=== PATIENT | male | born 1995 | race Caucasian/White ===

== ENCOUNTER → 2024-02-26 13:35 | Outpatient (REF) | payer OTHER, SELFPAY | LOC: RAD 13:35 | PROVIDERS: ATTENDING PHYSICIAN Emergency Medicine | DX: S30.0XXD Contusion of lower back and pelvis, subsequent encounter (principal) | CPT/HCPCS: 72110 ==

== ENCOUNTER 2024-04-16 16:32 | Emergency (ER) | payer OTHER, SELFPAY ==
[2024-04-16 16:35] VITALS: BP 154/85
--- NOTE | 2024-04-16 17:27 | ED.GENMED ---
History of Present Illness
General
Chief Complaint: Abdominal Pain
Time Seen by Provider: 04/16/24 17:26
History of Present Illness
History of Present Illness:
HPI: The patient presents with abdominal pain. He locates the pain as left greater than right. Of note, 2 months ago the patient fell out of a tree from approximately 10 feet. He started taking an NSAID at that time. About 3 weeks ago he
developed 'a GI bug' but since that time is been having ongoing/worsening abdominal pain. He also showed me a picture that he had on his phone of saliva with some blood mixed in with it that he spit up earlier
EXAM:
GENERAL: Well appearing in no distress
HEENT: Moist oral mucosa
CARDIOVASCULAR: No murmurs, normal heart rate, regular rhythm, No chest wall tenderness
PULMONARY: No respiratory distress, breath sounds are clear and equal
ABDOMEN: Soft with no peritoneal signs, mild to moderate left greater than right diffuse tenderness
NEUROLOGIC: Excellent strength all extremities, no coordination deficits
PSYCHIATRIC: Appropriate mental status, normal insight and judgement
EXTREMITIES: Nontender, no edema, moves all extremities equally
SKIN: No rash, no lesions
TIME OF INITIAL ENCOUNTER: 6 PM
NUMBER AND COMPLEXITY OF PROBLEMS ADDRESSED AT THE ENCOUNTER
� Chronic conditions affecting care: Anxiety/depression
� Acute Exacerbation and/or Progression of Chronic Illness: This is an acute problem
� Differential Diagnosis includes: Gastroenteritis, gastritis, retroperitoneal hemorrhage unlikely given the timing after the fall, diverticular disease, pyelonephritis unlikely based on lack of urinary symptoms
AMOUNT AND/OR COMPLEXITY OF DATA TO BE REVIEWED AND ANALYZED
� I performed an independent evaluation of and my interpretation is:
EKG:
CT: I personally reviewed CT imaging. No significant acute finding noted.
X-rays:
Laboratory Studies: Urinalysis negative, white count normal, chemistries unremarkable
Other:
� Review of other/old records: I reviewed old records, prior labs show leukopenia
� Clinical information was obtained by an independent historian: None needed
� Prescriptions/Medications Considered but not given:
� Further testing considered but not performed:
RISK OF COMPLICATIONS AND/OR MORBIDITY OR MORTALITY OF PATIENT MANAGEMENT
� Social determinants of health affecting care: Lives at home
� Discussion with other providers:
� Escalation of care including admission/observation vs risk of discharge considered: The patient does have moderate tenderness at the abdomen�will obtain CT imaging. Unremarkable ED workup including CT imaging and labs. On
reassessment at 9:10 PM, the patient reports overall feeling improved. He was given IV fluids earlier. Unclear etiology of patient's symptoms.
Past History
Past History
ED Past Medical History: None
ED Past Surgical History: Appendectomy and Other (Bilateral hernia repair,)
Social History
Tobacco: Smoker
Alcohol: None
Personal: Single
Living: other (lives with Girlfriend)
Phy Exam
Physical Exam
Physical Exam:
See HPI
Course
Orders/Labs/Results
Orders:
Orders
04/16/24 18:11
CT Abd/pelvis W Iv Cont Urgent
Comment:
Reason For Exam: worsening L>R abd pain
0.9% Sodium Chloride 1000 ml [Nss] 1,000 ml IV BOLUS
Famotidine [Pepcid] 20 mg IV NOW STA
04/16/24 18:35
Complete Blood Count/With Diff Urgent
Comprehensive Metabolic Panel Urgent
04/16/24 18:41
Urinalysis Reflex To Culture Urgent
Date Specimen was Collected: 04/16/24
Time Specimen was Collected: 18:40
Abnormal Lab Results
04/16/24
18:35
RBC 4.43 L 10^6/uL
(4.70-6.10)
Hct 38.8 L %
(39.0-52.0)
MCH 31.2 H pg
(27.0-31.0)
Plt Count 125 L 10^3/uL
(130-400)
MPV 12.3 H fL
(7.4-10.4)
04/16/24 18:35
04/16/24 18:35
Vital Signs
Initial and Last Documented VS:
Initial Vital Signs
Temp Pulse Resp BP Pulse Ox
97.9 F 74 18 154/85 100
04/16/24 16:35 04/16/24 16:35 04/16/24 16:35 04/16/24 16:35 04/16/24 16:35
Last Documented Vital Signs
Temp Pulse Resp BP Pulse Ox
97.9 F 61 18 129/82 99
04/16/24 16:35 04/16/24 18:38 04/16/24 16:35 04/16/24 18:38 04/16/24 18:38
*Critical Care Note
Total Time (30-74mins, 75-104mins- exclusive of procedures): Not Applicable
ED Attending Note
-
Portions of this chart may have been created with voice recognition software.� Occasional wrong word or��sound alike� substitutions may have occurred due to the inherent limitations of voice recognition software.
Discharge Plan
Departure
Prescriptions:
No Action
melatonin 5 MG tablet
5 mg PO HS
Referrals:
NONE,* [Family Provider] -
Interventions
Interventions:
*Risk Screen - Suicide Last Done: 04/16/24 16:35
*General Assessment Last Done: 04/16/24 16:35
*Neglect/Abuse Screening Last Done: 04/16/24 16:35
Discharge Date and Time
Print Language: [place]
[2024-04-16] MEDS: PEPCID 20 MG IV (18:33)
[2024-04-16] MEDS: NSS 1000 IV (18:33)
[2024-04-16 18:38] VITALS: BP 129/82
[2024-04-16 18:47] LABS: Urine Albumin Negative (Neg - Trace); Urine Bilirubin Negative (Negative); Urine Character Clear (Clear); Urine Color Yellow; Urine Glucose Negative (Negative); Urine Ketone Negative (Negative); Urine Leukocyte Negative (Negative); Urine Nitrite Negative (Negative); Urine Occult Blood Negative (Negative); Urine Urobilinogen Negative (Neg - 1+)
[2024-04-16 18:47] LABS: % Basophils 0.7 % (0-2); % Eosinophils 0.2 % (0-6); % Immature Granulocytes 0.2 % (0-0.5); % Lymphocytes 30.4 % (20.5-51.1); % Monocytes 8.3 % (1.7-9.3); % Neutrophils 60.2 % (42.2-75.2); Absolute Lymphocytes 1.8 10^3/uL (1.2-3.4); Absolute Monocytes 0.5 10^3/uL (0.1-0.6); Absolute Neutrophils 3.6 10^3/uL (1.4-6.5); Hematocrit 38.8 % (39.0-52.0); Hemoglobin 13.8 g/dL (13.0-18.0); Mean Corp Hgb Conc. 35.6 g/dL (33.0-37.0); Mean Corpuscular Hgb 31.2 pg (27.0-31.0); Mean Corpuscular Volume 87.6 fL (80.0-94.0); Mean Platelet Volume 12.3 fL (7.4-10.4); Nucleated Red Blood Cells % 0 % (-); Platelet Count 125 10^3/uL (130-400); Red Blood Cell Count 4.43 10^6/uL (4.70-6.10); Red Cell Dist. Width 12.4 % (11.5-14.5); White Blood Cell Count 5.9 10^3/uL (4.8-10.8)
[2024-04-16 19:06] LABS: ALT (SGPT) 18 U/L (0-50); AST (SGOT) 26 U/L (17-59); Albumin 4.8 g/dl (3.5-5.0); Alkaline Phosphatase 65 U/L (38-126); Blood Urea Nitrogen 13 mg/dl (9-20); Calcium 9.4 mg/dl (8.4-10.2); Carbon Dioxide 29 mmol/L (22-30); Chloride 101 mmol/L (98-107); Glucose 81 mg/dl (70-99); Sodium 138 mmol/L (135-145); Total Bilirubin 0.7 mg/dl (0.2-1.3); Total Protein 7.2 g/dl (6.3-8.2); eGFR > 60.00
[2024-04-16 21:30] VITALS: BP 134/67
== END 2024-04-16 21:30 | disposition home or self-care (01) ==
LOC: EMR 16:32
PROVIDERS: EMERGENCY PHYSICIAN Emergency Medicine
DX: R10.9 Unspecified abdominal pain (principal); F17.200 Nicotine dependence, unspecified, uncomplicated; Z90.49 Acquired absence of other specified parts of digestive tract
CPT/HCPCS: 99284; 96374; 96361; 74177; 80053; 81003; 85025; Q9967